=== PATIENT | female | born 1935 | race Caucasian/White ===

== ENCOUNTER 2017-11-27 17:10 | Emergency (ER) | payer MEDICARE, MEDICAID ==
[~2017-11-27] VITALS: Ht 152.4 cm; Wt 77.1 kg
[2017-11-27 17:10] VITALS: BP 155/72
[2017-11-27] MEDS ORDERED: IBUPROFEN 600 MG TABLET PO ONE ×2 (17:58→18:00)
== END 2017-11-27 19:02 | disposition home or self-care (01) ==
LOC: ER 17:12
DX: M25.552 Pain in left hip (principal); J45.909 Unspecified asthma, uncomplicated; Z88.0 Allergy status to penicillin; Z88.1 Allergy status to other antibiotic agents
CPT/HCPCS: 72170-TC; A4606; Z7610

== ENCOUNTER 2019-01-11 18:48 | Emergency (ER) | payer MEDICARE, MEDICAID ==
[~2019-01-11] VITALS: Ht 152.4 cm; Wt 75.7 kg
--- NOTE | 2019-01-11 19:20 | NUR ---
PRESENTED TO THE ER FOR C/O URINARY RETENTION,. PER MD'S ORDER F/C INSERTED . DRAINING CLEAR YELLOW URINE. URINE COLLECTED AND SENT TO THE LAB.
[2019-01-11 19:37] LABS: APPEARANCE,URINE Clear (CLEAR); BILIRUBIN,URINE Negative (NEGATIVE); BLOOD, URINE Trace-intact Ery/uL (NEGATIVE); COLOR,URINE Yellow (YELLOW); KETONES,URINE Negative (NEGATIVE); LEUKOCYTE ESTERASE ,URINE Negative (NEGATIVE); NITRITE, URINE Negative (NEGATIVE); PH,URINE 5.5 (5.0-8.0); PROTEIN,URINE Negative (NEGATIVE); UGLUCOSE Negative (NEGATIVE); UROBILINOGEN,URINE 0.2 EU/dL (0.2)
[2019-01-11 19:56] LABS: BACTERIA,URINE None seen /HPF (None Seen); RBC,URINE 0-2 /HPF (0-2); SQUAMOUS EPITHELIAL CELL,UR None Seen /HPF (None Seen); WBC,URINE NONE SEEN /HPF (0-3)
--- NOTE | 2019-01-11 20:11 | NUR ---
PT IN BED AWAKE AND ALERT W/ DTR AT THE BED SIDE. F/C IN PLACE DRAININIG CLEAR YELLOW URINE. VSS. REPORTED FEELING BETTER. WILL CONT TO MONITOR ,
--- NOTE | 2019-01-11 20:30 | NUR ---
F/C D/C'D W/ 250ML OF URINE OUTPUT. PT STABLE W/ NO C/O PAIN OR DISCOMFORT .VSS.
--- NOTE | 2019-01-11 20:31 | NUR ---
Patient discharged to home in stable condition. Rx and Written and verbal after care instructions given. Patient and dtr verbalized understanding of instruction.
[2019-01-11 20:47] VITALS: BP 133/61
== END 2019-01-11 20:48 | disposition home or self-care (01) ==
LOC: ER 18:48
DX: N32.81 Overactive bladder (principal); J44.9 Chronic obstructive pulmonary disease, unspecified; I10 Essential (primary) hypertension; Z88.0 Allergy status to penicillin; Z88.1 Allergy status to other antibiotic agents
CPT/HCPCS: 81000-TC; 87086-TC

== ENCOUNTER 2019-07-18 10:51 | Emergency (ER) | payer MEDICARE, OTHER ==
[~2019-07-18] VITALS: Ht 152.4 cm; Wt 68.5 kg
--- NOTE | 2019-07-18 11:07 | NUR ---
bibdaughter, from home, s/p unwitnessed fall in the bathroom 07/17/19 around 1am, back of the head hematoma,-ko,-N/V. PER DAUGHTER, PT IS NORMALLY INDEPENDENT AND LIVES ALONE. AMBULATES WITH WALKER. DENIES SOB, DIZZINESS, WEAKNESS, VISION CHANGES. NO ACUTE DISTRESS NOTED. ON MONITOR AND READY FOR EVAL.
[2019-07-18 11:28] LABS: BASOPHILS % (AUTO) 0.4 % (0.0-2.0); EOSINOPHILS % (AUTO) 0.8 % (0.0-6.0); HEMATOCRIT 40 % (33-45); HEMOGLOBIN 13.3 g/dL (11.5-14.8); LYMPHOCYTES # (AUTO) 0.8 /CMM (0.8-4.8); LYMPHOCYTES % (AUTO) 7.3 % (20.0-44.0); MEAN CORPUSCULAR HGB CONC 33 g/dl (31.0-36.0); MEAN CORPUSCULAR VOLUME 97 fL (82-100); MONOCYTES # (AUTO) 0.8 /CMM (0.1-1.30); NEUTROPHILS # (AUTO) 9.7 /CMM (1.8-8.9); NEUTROPHILS % (AUTO) 84.5 % (43.0-81.0); PLATELET COUNT (AUTO) 281 /CMM (150-450); RED BLOOD CELL COUNT(AUTO) 4.12 MIL/uL (4.0-5.2); WHITE BLOOD COUNT (AUTO) 11.5 K/uL (4.3-11.0)
--- NOTE | 2019-07-18 11:37 | NUR ---
PT TAKEN TO RADIOLOGY VIA [facility]
[2019-07-18 11:38] LABS: CALCIUM, SERUM 10.3 mg/dL (8.5-10.1); CREATININE 1.2 mg/dL (0.6-1.3); POTASSIUM 4.3 mmol/L (3.5-5.1)
[2019-07-18 11:43] LABS: ALBUMIN 3.9 g/dL (3.4-5.0); BILIRUBIN,DIRECT 0.2 mg/dL (0.0-0.2); TOTAL PROTEIN, SERUM 7.1 g/dL (6.4-8.2)
[2019-07-18] MEDS ORDERED: IV NS 0.9% 500 ML BAG IV ONE (12:00)
--- NOTE | 2019-07-18 13:00 | NUR ---
ASSISTED PT TO BED HASSAN WITH [employer]IO [employer] DES[employer]INE[employer]
--- NOTE | 2019-07-18 13:30 | NUR ---
IV ACCESS OBTAINED. IVF INFUSING. PT QUE WELL
--- NOTE | 2019-07-18 13:40 | NUR ---
URINE SENT TO STAT LAB
[2019-07-18 13:59] LABS: APPEARANCE,URINE Clear (CLEAR); BILIRUBIN,URINE SMALL (NEGATIVE); BLOOD, URINE Negative Ery/uL (NEGATIVE); COLOR,URINE Yellow (YELLOW); KETONES,URINE 40 (NEGATIVE); LEUKOCYTE ESTERASE ,URINE Small (NEGATIVE); NITRITE, URINE Negative (NEGATIVE); PH,URINE 5.5 (5.0-8.0); PROTEIN,URINE Negative (NEGATIVE); UGLUCOSE Negative (NEGATIVE); UROBILINOGEN,URINE 0.2 EU/dL (0.2)
[2019-07-18 14:10] VITALS: BP 141/68
--- NOTE | 2019-07-18 14:15 | NUR ---
Patient is resting comfortably in bed with eyes closed. Easily aroused. VSS
[2019-07-18 14:41] LABS: BACTERIA,URINE 3+ /HPF (None Seen); MUCUS,URINE Moderate /LPF (None Seen); SQUAMOUS EPITHELIAL CELL,UR Many /HPF (None Seen); URINE AMORPHOUS URATE Many /HPF (None Seen); WBC,URINE 51-80 /HPF (0-3)
[2019-07-18] MEDS ORDERED: IV NS 0.9% 1,000 ML IV PRN (14:49)
--- NOTE | 2019-07-18 14:51 | NUR ---
NURSING SUP GAVE TELE BED 310-1.
[2019-07-18] MEDS ORDERED: ONDANSETRON HCL/PF 4 MG/2 ML VIAL IVP PRN (15:00)
[2019-07-18] MEDS ORDERED: MAG HYDROX/AL HYDROX/SIMETH 30 ML UDC PO PRN (15:00)
[2019-07-18] MEDS ORDERED: TEMAZEPAM 15 MG CAPSULE PO PRN (15:00)
[2019-07-18] MEDS ORDERED: MAGNESIUM HYDROXIDE 30 ML UDC PO PRN (15:00)
[2019-07-18] MEDS ORDERED: HYDROCODONE/APAP 5/325MG 1 EACH TABLET PO PRN (15:00)
[2019-07-18] MEDS ORDERED: MORPHINE SULFATE INJ 4 MG/ML DISP.SYRIN IV PRN (15:00)
[2019-07-18] MEDS ORDERED: ACETAMINOPHEN 325 MG TABLET PO PRN (15:00)
--- NOTE | 2019-07-18 15:05 | NUR ---
TELMA DNP AT BEDSIDE
--- NOTE | 2019-07-18 15:10 | NUR ---
PER DNP, PT WILL BE TRANSFERRED TO [facility]
[2019-07-18] MEDS ORDERED: LEVOFLOXACIN 750 MG /D5W 150ML 750 MG in PREMIX 1 EA IV SCH (15:30)
--- NOTE | 2019-07-18 16:01 | NUR ---
FACE SHEET FAXED TO [facility]
--- NOTE | 2019-07-18 16:26 | NUR ---
ASSISTED PT TO RESTROOM
--- NOTE | 2019-07-18 17:25 | NUR ---
REPORT GIVEN TO CCT NURSE FOR TRANSPORT AND SHAYNA RUIZ AT [facility] FOR [place]
--- NOTE | 2019-07-18 17:26 | NUR ---
[address] [facility] [address]
== END 2019-07-18 17:41 ==
LOC: ER 10:57
DX: I21.4 Non-ST elevation (NSTEMI) myocardial infarction (principal); S20.219A Contusion of unspecified front wall of thorax, initial encounter; I10 Essential (primary) hypertension; J44.9 Chronic obstructive pulmonary disease, unspecified; Z88.0 Allergy status to penicillin; Z88.1 Allergy status to other antibiotic agents; Z88.6 Allergy status to analgesic agent; W18.39XA Other fall on same level, initial encounter; Y93.89 Activity, other specified; Y92.091 Bathroom in other non-institutional residence as the place of occurrence of the external cause; Y99.8 Other external cause status
CPT/HCPCS: 36415; 70450; 71045; 72125; 80048; 80076; 81001; 83605 ×2; 84484 ×2; 85025; 85730; 87040 ×2; 87081; 87086; 93005; 99291; A4216; J1956; J7040; L0172; 81000-TC